=== PATIENT | female | born 1955 | race Caucasian/White ===

== ENCOUNTER 2017-01-14 11:40 | Day surgery (SDC) | payer OTHER ==
[~2017-01-14] VITALS: Ht 177.8 cm; Wt 63.5 kg
[~2017-01-14 11:40] MED LIST: 0.9% Sodium Chloride 1,000 ML IV SCH; Sodium Chloride LOK Flush 10 mL Syringe IV PRN; fentaNYL-PF 50 mCg/mL 2 mL Inj IVPUSH PRN
[2017-01-14] MEDS ORDERED: fentaNYL-PF 50 mCg/mL 2 mL Inj ONE ×2 (11:54)
[2017-01-14 12:01] VITALS: BP 142/96; PULSE 81; RESP 16; O2SAT 99
[2017-01-14] MEDS ORDERED: No current meds (12:01)
[2017-01-14] MEDS ORDERED: 0.9% Sodium Chloride 1,000 ML IV ONE (12:44)
[2017-01-14 12:52] VITALS: BP 138/83; PULSE 72; RESP 16; O2SAT 100
[2017-01-14 13:02] VITALS: BP 124/81; PULSE 74; RESP 16; O2SAT 98
[2017-01-14 13:12] VITALS: BP 135/78; PULSE 74; RESP 16; O2SAT 99
[2017-01-14 13:24] VITALS: BP 129/81; PULSE 63; RESP 16; O2SAT 100
--- NOTE | 2017-01-14 20:37 | ENDO ---
[address] [address] ENDOSCOPY PROCEDURE PATIENT: JOSE LUIS MELENDEZ : 1955 MR#: [id number] ADMIT: 01/14/2017 JOB ID: [id number] CORRECTED REPORT: DATE: 01/14/2017 PROCEDURE: Colonoscopy. PRIMARY PROVIDER: Regla Coronado MD. INDICATIONS: A 61-year-old female who reports for colon cancer screening. EQUIPMENT: PCF H 180 AL. SEDATION: 6 mg Versed and 125 mcg fentanyl. COMPLICATIONS: None identified. BOWEL PREPARATION: Fair. PROCEDURE IN DETAIL: After the risks and benefits were explained, written and verbal informed consent was obtained. The patient was brought into the endoscopy suite and placed in left lateral decubitus position. Sedation was achieved as above. A digital rectal examination accomplished. Mild internal hemorrhoids noted. The scope was introduced into the rectum and advanced to the cecum as identified by the appendiceal orifice and ileocecal valve. The scope was slowly withdrawn to carefully examine the mucosa for any defects or lesions. Multiple direct views were made through the dentate line for exclusion of pathology. The colon was decompressed. The scope removed from the patient who tolerated the procedure well. FINDINGS: No significant polyps, mass lesions, or inflammatory features identified throughout. The patient had a moderately challenging sigmoid to navigate through. It was quite twisty, tortuous. ENDOSCOPIC DIAGNOSIS: Visually unremarkable colonoscopy to cecum. RECOMMENDATIONS: Repeat colonoscopy in 10 years' time, sooner should symptoms warrant an earlier exam. Corrected by TEODORO 01/18/17 at 2:22pm DOS.
== END 2017-01-14 23:59 | disposition home or self-care (01) ==
LOC: END 11:40
PROVIDERS: ATTEND Internal Medicine Gastroenterology
DX: Z12.11 Encounter for screening for malignant neoplasm of colon (principal); Z85.828 Personal history of other malignant neoplasm of skin
CPT/HCPCS: 99153; G0105; G0500; J2250; J3010; J7030